=== PATIENT | male | born 1990 | race Hispanic/Latino ===

== ENCOUNTER 2018-06-24 20:14 | Emergency (ER) | payer OTHER ==
[~2018-06-24] VITALS: Ht 177.8 cm; Wt 79.4 kg
[2018-06-24 20:19] VITALS: BP 144/84
== END 2018-06-24 22:16 | disposition admitted as inpatient to this hospital (09) ==
LOC: ERH 20:14
DX: M25.572 Pain in left ankle and joints of left foot (principal)